=== PATIENT | female | born 1985 | race African-American/Black ===

== ENCOUNTER 2018-01-14 01:03 | Emergency (ER) | payer OTHER ==
[2018-01-14 01:35] VITALS: BP 126/77; PULSE 87; TEMP 97.9; BMI 41.0
[2018-01-14] MEDS ORDERED: IBUPROFEN 400 MG TABLET (FP) PO ONE (01:44)
--- NOTE | 2018-01-14 01:44 | PDOC ---
History of Present Illness - General History Source: Patient, Old Records Exam Limitations: No Limitations - History of Present Illness Initial Comments: 01/14/18 01:50 The patient is a 32 year old female, current smoker, who presents to the emergency department with right flank pain for 2-3 days. The patient reports that her pain is exacerbated on movement. She took 400 mg of motrin with minimal relief of pain. She denies any urinary complaints. She denies any respiratory complaints. <Isael Hsu - Last Filed: 01/14/18 01:50> - General History Source: Patient <Satish Flanagan - Last Filed: 01/14/18 04:04> - General Chief Complaint: Pain Stated Complaint: PAIN,RT SIDE Time Seen by Provider: 01/14/18 01:39 Past History <Isael Hsu - Last Filed: 01/14/18 01:50> - Suicide/Smoking/Psychosocial Hx Smoking History: Never smoked Have you smoked in the past 12 months: No Information on smoking cessation initiated: No Hx Alcohol Use: No Drug/Substance Use Hx: No <Satish Flanagan - Last Filed: 01/14/18 04:04> - Past Medical History Allergies/Adverse Reactions: Allergies Allergy/AdvReac Type Severity Reaction Status Date / Time No Known Allergies Allergy Verified 01/14/18 02:05 Home Medications: Ambulatory Orders Azithromycin [Zithromax -] 250 mg PO UTDICT #6 tab 01/14/18 traMADol HCL [Ultram -] 50 mg PO Q6H #20 tablet MDD 4 01/14/18 Review of Systems - Review of Systems Able to Perform ROS?: Yes Comments:: 01/14/18 01:50 CONSTITUTIONAL: Absent: fever, no chills, no fatigue EYES: Absent: visual changes ENT: Absent: ear pain, no sore throat CARDIOVASCULAR: Absent: chest pain, no palpitations RESPIRATORY: Absent: cough, no SOB GI: (+) Abdominal pain Absent: no nausea, no vomiting, no constipation, no diarrhea GENITOURINARY: Absent: dysuria, no frequency, no hematuria MUSCULOSKELETAL: Absent: back pain, no arthralgia, no myalgia SKIN: Absent: rash <Isael Hsu - Last Filed: 01/14/18 01:50> *Physical Exam - Vital Signs Last Vital Signs Temp Pulse Resp BP Pulse Ox 97.9 F 87 20 126/77 98 01/14/18 01:34 01/14/18 01:34 01/14/18 01:34 01/14/18 01:34 01/14/18 01:34 - Physical Exam Comments: 01/14/18 01:50 GENERAL: Well-appearing, well-nourished. No apparent distress. HEENT: Normocephalic, atraumatic. PERRL, EOM intact. CARDIOVASCULAR: Normal S1, S2. Regular rate and rhythm. PULMONARY: Clear to auscultation bilaterally. Bilateral rhonchi in lower lung gallagher (R>L) ABDOMEN: Soft, non-distended, non-tender. Mild tender right flank no CVA tenderness EXTREMITIES: Normal ROM in all four extremities. No gross deformities. SKIN: Warm, dry. No rash NEUROLOGICAL: No focal neurological deficits. <Isael Hsu - Last Filed: 01/14/18 01:50> - Vital Signs Last Vital Signs Temp Pulse Resp BP Pulse Ox 97.9 F 87 20 126/77 98 01/14/18 01:34 01/14/18 01:34 01/14/18 01:34 01/14/18 01:34 01/14/18 01:34 <Satish Flanagan - Last Filed: 01/14/18 04:04> Medical Decision Making - Medical Decision Making 01/14/18 04:04 Dr. Flanagan: The scribe's documentation has been prepared under my direction and personally reviewed by me in its entirery. I confirm that the note above accurately reflects all work, treatment, procedures, and medical decision making performed by me. <Satish Flanagan - Last Filed: 01/14/18 04:04> *DC/Admit/Observation/Transfer - Attestations Scribe Attestion: 01/14/18 01:50 Documentation prepared by Isael Hsu, acting as medical office assistant for Satish Flanagan DO. <Isael Hsu - Last Filed: 01/14/18 01:50> - Discharge Dispostion Decision to Admit order: No <Satish Flanagan - Last Filed: 01/14/18 04:04> Diagnosis at time of Disposition: Flank pain - Discharge Dispostion Disposition: HOME Condition at time of disposition: Stable - Referrals Referrals: Helen Balderrama MD [Staff Physician] - - Patient Instructions Printed Discharge Instructions: DI for Flank Pain
[2018-01-14 02:18] LABS: URINE APPEARANCE CLEAR; URINE BILIRUBIN NEGATIVE (<2.0 mg/dL); URINE COLOR YELLOW; URINE GLUCOSE (UA) NEGATIVE (NEGATIVE); URINE KETONE NEGATIVE (NEGATIVE); URINE LEUK ESTERASE TRACE (NEGATIVE); URINE NITRITE NEGATIVE (NEGATIVE); URINE PROTEIN NEGATIVE (NEGATIVE); URINE UROBILINOGEN NEGATIVE mg/dL (0.2-1.0)
[2018-01-14 02:28] LABS: EPI CELLS RARE /HPF (FEW); URINE BACTERIA FEW /hpf (NONE SEEN); URINE MUCUS RARE
[2018-01-14 02:34] LABS: HCG,QUALITATIVE URINE NEGATIVE
[2018-01-14] MEDS ORDERED: AZITHROMYCIN 250 MG TABLET PO STA (03:59)
[2018-01-14] MEDS ORDERED: traMADol HCL 50 MG TABLET PO ONE (03:59)
[2018-01-14] MEDS ORDERED: traMADol HCL 50 MG TABLET ONE (04:03)
[2018-01-14] MEDS ORDERED: AZITHROMYCIN 250 MG TABLET ONE (04:03)
== END 2018-01-14 04:17 | disposition home or self-care (01) ==
LOC: JER 01:03
DX: R10.31 Right lower quadrant pain (principal)
CPT/HCPCS: 74176; 81003; 81015; 84703; 99282-25